=== PATIENT | female | born 1955 | race Caucasian/White ===

== ENCOUNTER 2023-01-12 07:50 | Outpatient (CLI) | payer MEDICARE, OTHER | END 2023-01-12 07:51 | disposition home or self-care (01) | LOC: RT 07:50 | PROVIDERS: ATTEND Naturopath | DX: Z01.810 Encounter for preprocedural cardiovascular examination (principal) | CPT/HCPCS: 93005 ==

== ENCOUNTER 2024-02-10 09:34 | Outpatient (CLI) | payer MEDICARE, OTHER ==
--- NOTE | 2024-02-10 16:16 | CT Report ---
PROCEDURE: CT heart coronary calcium scoring without contrast TECHNIQUE: MDCT non-contrast cardiac gated images were obtained from the brea through the inferior margin of the heart. Calcium score was obtained by post-processing with external software. Automated exposure control was used to reduce patient radiation dose. INDICATION: CAD screening, low or intermediate risk COMPARISON: None FINDINGS: Image quality: Excellent Agatston method: Total calcium score: 0 L main: 0 LAD: 0 LCX: 0 RCA: 0 Heart findings: Mitral annular calcifications: No significant calcifications. Aortic valve: No significant valvular calcifications. Chambers: No significant enlargement on this non-dynamic study. Pericardium: No effusion. Other findings (note the chest is incompletely imaged on this limited non-contrast study): Lungs and pleura: No pleural effusion. No actionable lung nodules. Mediastinum: No pathologic lymphadenopathy. Upper abdomen: Partially seen, unremarkable. Bones: No acute or suspicious abnormality. IMPRESSION: Coronary calcium scores as above. Incidentals: None significant. Coronary artery calcium scores have been identified as an independent risk factor for future acute co ronary syndromes and correlate with the quantity of coronary atherosclerotic plaque. However, they do not correlate directly with the degree of stenosis. A low score does not exclude a significant coron aroldo artery stenosis. Risk of future coronary events should be assessed with individual patient risk factors and medical hi story. Consider correlation with risk percentiles using the JOHNSON (Multi-Ethnic Study of Atheroscleros is) calculator. CAC-DRS Categories: A0: 0, very low risk, consider repeat coronary calcium study every 3-7 years for surveillance. A1: 1-99, mildly increased risk, consider moderate-intensity statin A2: 100-299: moderately increased risk, consider moderate to high-intensity statin + ASA 81mg A3: >300: moderately to severely increased risk, consider high-intensity statin + ASA 81mg Reviewed by: Sebas Leung MD on 02/10/2024 4:14 PM PDT Approved by: Sebas Leung MD on 02/10/2024 4:14 PM PDT Station ID: [id number]
== END 2024-02-10 09:35 | disposition home or self-care (01) ==
LOC: DI 09:34
PROVIDERS: ATTEND Naturopath
DX: E78.00 Pure hypercholesterolemia, unspecified (principal)

== ENCOUNTER 2024-02-16 10:22 | Outpatient (CLI) | payer MEDICARE, OTHER ==
--- NOTE | 2024-02-17 10:28 | Mammography Report ---
BILATERAL DIGITAL SCREENING MAMMOGRAM 3D/2D: 02/16/2024 CLINICAL: Baseline exam. Routine screening. No prior exams were available for comparison. There are scattered areas of fibroglandular density in both breasts (category b / 25%-50% glandular t issue). No significant masses, calcifications, or other findings are seen in either breast. IMPRESSION: NEGATIVE There is no mammographic evidence of malignancy. A 1 year screening mammogram is recommended. Based on the Tyrer Cuzick model (a risk assessment model) the patient's lifetime risk is 5.4% and her 10 year risk is 2.9%. According to the ACR, ACS, and NCCN guidelines, an annual breast MRI exam mervat g with mammogram is recommended if the patient's lifetime risk is 20% or greater. This exam was interpreted at Station ID: [id number]. NOTE: For mammograms, a report in lay terms will be sent to the patient. Approximately 15% of breast malignancies will not be visualized mammographically. In the management of a palpable breast mass, a negative mammogram must not discourage biopsy of a clinically suspicious lesion. Electronically Signed By: El Hernandez M.D. [email or web address]:02/16/2024 16:13:43 ACR BI-RADS Category 1: Negative 3341F PARENCHYMAL PATTERN: (A) - The breast(s) demonstrate(s) scattered fibroglandular densities. BI-RADS CATEGORY: (1) - 1 RECOMMENDATION: (ANNUAL) - Recommend routine annual screening mammography. [id number] 1 year screening LATERALITY: (B)
== END 2024-02-16 10:23 | disposition home or self-care (01) ==
LOC: DI 10:22
DX: Z12.31 Encounter for screening mammogram for malignant neoplasm of breast (principal); R92.323 Mammographic fibroglandular density, bilateral breasts